=== PATIENT | female | born 1975 | race Caucasian/White ===

== ENCOUNTER 2021-01-25 20:17 | Emergency (ER) | payer MEDICAID ==
[~2021-01-25] VITALS: Ht 154.9 cm; Wt 54.4 kg
[2021-01-25 20:25] VITALS: BP_SYST 118
--- NOTE | 2021-01-25 21:30 | NUR ---
PT TO BED 6 FOR EVALUATION. REPORT TO ESSIE, RN WHO WILL ASUME CARE.
[2021-01-25 21:33] LABS: BASOPHILS % (AUTO) 0.6 % (0.0-2.0); EOSINOPHILS # (AUTO) 0.1 K/uL (0.0-0.4); EOSINOPHILS % (AUTO) 1.3 % (0.0-4.0); HEMATOCRIT 34.3 % (36-48); HEMOGLOBIN 11.9 g/dL (12.0-16.0); LYMPHOCYTES # (AUTO) 2.1 K/uL (1.0-5.5); LYMPHOCYTES % (AUTO) 39.4 % (20.5-51.5); MEAN CORPUSCULAR HEMOGLOBIN 32 pg (27-31); MEAN CORPUSCULAR HGB CONC 35 % (32-36); MEAN CORPUSCULAR VOLUME 93 fL (79.0-98.0); MONOCYTES # (AUTO) 0.3 K/uL (0.0-1.0); MONOCYTES % (AUTO) 5.4 % (1.7-9.3); NEUTROPHILS # (AUTO) 2.8 K/uL (1.8-7.7); NEUTROPHILS % (AUTO) 53.3 % (40.0-70.0); PLATELET COUNT (AUTO) 187 K/uL (130-430); RED BLOOD CELL COUNT(AUTO) 3.71 MIL/uL (4.2-6.2); RED CELL DISTRIBUTION WIDTH 12.4 % (9.0-15.0); WHITE BLOOD COUNT (AUTO) 5.3 K/uL (4.8-10.8)
--- NOTE | 2021-01-25 21:40 | NUR ---
Patient BIB by family from home. C/O vaginal bleeding x 5 days. Patient reported, had irregular period , prolonged and heavy period since August, Last LMP - and then started again - .
[2021-01-25 21:41] LABS: INR 0.9 (0.8-1.2)
--- NOTE | 2021-01-25 21:45 | NUR ---
ER Dr. Rutledge at bedside examining patient.
[2021-01-25 21:46] LABS: ALBUMIN 3.8 g/dL (3.4-4.8); CALCIUM 8.4 mg/dL (8.4-11.0); CREATININE 0.7 mg/dL (0.55-1.30); POTASSIUM 3.4 mmol/L (3.5-5.1); TOTAL BILIRUBIN 0.3 mg/dL (0.0-1.0)
[2021-01-25 22:09] VITALS: BP_SYST 118
--- NOTE | 2021-01-25 22:09 | NUR ---
Patient given written and verbal discharge instructions and verbalizes understanding. ER MD discussed with patient the results and treatment provided. Patient in stable condition. ID arm band removed. No Rx given. Patient educated on pain management and to follow up with PMD. Pain Scale 0/10. Opportunity for questions provided and answered.
[2021-01-25 22:11] LABS: BILIRUBIN,URINE NEGATIVE (NEGATIVE); BLOOD, URINE 3+ (NEGATIVE); CLARITY/URINE CLEAR (CLEAR); GLUCOSE,URINE NEGATIVE (NEGATIVE); KETONES,URINE NEGATIVE (NEGATIVE); LEUKOCYTE ESTERASE ,URINE NEGATIVE (NEGATIVE); NITRITE, URINE NEGATIVE (NEGATIVE); PROTEIN URINE NEGATIVE (NEGATIVE); UROBILINOGEN,URINE 0.2 (0.2-1.0)
[2021-01-25 22:16] LABS: COLOR,URINE STRAW (YELLOW)
[2021-01-25 22:17] LABS: BACTERIA,URINE FEW /HPF (None Seen); RBC,URINE 0-3 /HPF (0-3); WBC,URINE NONE SEEN /HPF (0-3)
[2021-01-25 22:18] LABS: MUCUS,URINE None Seen /LPF (None Seen)
== END 2021-01-25 22:09 | disposition home or self-care (01) ==
LOC: SED 20:17
DX: N93.8 Other specified abnormal uterine and vaginal bleeding (principal)
CPT/HCPCS: 36415; 80053; 81000; 84702; 85025; 85610-TC; 85730-TC; 99283

== ENCOUNTER 2021-02-17 16:06 | Emergency (ER) | payer MEDICAID, SELFPAY ==
[~2021-02-17] VITALS: Ht 154.9 cm; Wt 54.4 kg
[2021-02-17 16:37] VITALS: BP_SYST 122
--- NOTE | 2021-02-17 16:42 | NUR ---
SALVADOR AND ASKED TO WAIT IN THE WAITING ROOM
--- NOTE | 2021-02-17 16:50 | NUR ---
ER at bedside examining patient.
[2021-02-17] MEDS ORDERED: KETOROLAC TROMETHAMINE 60 MG/2 ML VIAL IM ONE (17:00)
[2021-02-17] MEDS ORDERED: cefTRIAXone 1 GM in LIDOCAINE 1%, 20 ML MDV 2.1 ML IM ONE (17:00)
--- NOTE | 2021-02-17 17:00 | NUR ---
MEDICATED W/ TORADOL AND ROCEPHIN PER MD ORDER
--- NOTE | 2021-02-17 19:00 | NUR ---
Patient to ER bed 3 to gown for evaluation. Side rails up.
--- NOTE | 2021-02-17 19:10 | NUR ---
UA COLLECTED AND SENT TO THE LAB
--- NOTE | 2021-02-17 19:20 | NUR ---
CARE ENDORSED TO YOHANA GOOD
--- NOTE | 2021-02-17 19:23 | NUR ---
Assumed total care of patient. Patient AAO x4 c/o lower abdomen pain and inability to urinate on her own. Patient VSS,breathing even and unlabored, no signs of acute distress noted. Will continue to monitor.
--- NOTE | 2021-02-17 20:30 | NUR ---
Patient resting in gurney, VSS, breathing even and unlabored, no signs of acute distress noted. Patient unable to void on her own. aware.
[2021-02-17 21:02] LABS: BILIRUBIN,URINE NEGATIVE (NEGATIVE); BLOOD, URINE 2+ (NEGATIVE); CLARITY/URINE CLEAR (CLEAR); GLUCOSE,URINE NEGATIVE (NEGATIVE); KETONES,URINE NEGATIVE (NEGATIVE); LEUKOCYTE ESTERASE ,URINE NEGATIVE (NEGATIVE); NITRITE, URINE NEGATIVE (NEGATIVE); PH,URINE 6.5 (5.0-8.0); PROTEIN URINE NEGATIVE (NEGATIVE); UROBILINOGEN,URINE 0.2 (0.2-1.0)
[2021-02-17 21:03] LABS: COLOR,URINE STRAW (YELLOW)
--- NOTE | 2021-02-17 21:22 | NUR ---
Patient ambulated to restroom with steady gait. Patient unable to void on her own. aware.
[2021-02-17 21:26] LABS: BACTERIA,URINE RARE /HPF (None Seen); MUCUS,URINE None Seen /LPF (None Seen); WBC,URINE 0-3 /HPF (0-3)
--- NOTE | 2021-02-17 22:20 | NUR ---
# 16 FR Hinkle catheter with use of sterile technique. Immediate return of 1200 cc clear yellow urine noted. Bedside drainage bag placed below level of bladder. Pt tolerated procedure well. Patient unable to toilet self. Patient educated with proper care of hinkle.
[2021-02-17 22:35] VITALS: BP_SYST 103
--- NOTE | 2021-02-17 22:35 | NUR ---
Patient given written and verbal discharge instructions and verbalizes understanding. ER MD discussed with patient the results and treatment provided. Patient discharged with Farr Catheter in place per MD orders. Patient in stable condition. ID arm band removed. no Rx given. Patient educated on pain management and to follow up with PMD. Pain Scale 4/10. Opportunity for questions provided and answered. Medication side effect fact sheet provided.
== END 2021-02-17 22:35 | disposition home or self-care (01) ==
LOC: SED 16:06
DX: R33.9 Retention of urine, unspecified (principal)
CPT/HCPCS: 51702; 81000; 96372; 99284; J0696; J1885; J2001

== ENCOUNTER 2021-06-11 05:55 | Day surgery (SDC) | payer MEDICAID, SELFPAY ==
[~2021-06-11] VITALS: Ht 154.9 cm; Wt 54.4 kg
[2021-06-11 06:54] LABS: HCG,QUAL RESULT NEGATIVE (NEGATIVE)
[2021-06-11 07:48] LABS: CALCIUM 8.8 mg/dL (8.4-11.0); CREATININE 0.56 mg/dL (0.55-1.30); POTASSIUM 3.5 mmol/L (3.5-5.1)
[2021-06-11 08:06] LABS: TOTAL BILIRUBIN 0.3 mg/dL (0.0-1.0)
[2021-06-11] MEDS ORDERED: METOCLOPRAMIDE HCL 10 MG/2 ML VIAL IVP ONE (08:13)
[2021-06-11] MEDS ORDERED: fentaNYL CITRATE/PF 100 MCG/2 ML AMP IVP ONE (08:13)
[2021-06-11] MEDS ORDERED: LR 1,000 ML IV.SOLN IV ONE (08:13)
[2021-06-11] MEDS ORDERED: SUCCINYLCHOLINE CHLORIDE 20 MG/ML(QUELICIN) IVP ONE (08:13)
[2021-06-11] MEDS ORDERED: PROPOFOL 200MG/ 20ML VIAL (DIPRIVAN) IV ONE (08:13)
[2021-06-11] MEDS ORDERED: LIDOCAINE 1% 10 MG/ML, 20 ML MDV INJ ONE (08:13)
[2021-06-11] MEDS ORDERED: ROCURONIUM BROMIDE 10 MG/ML (ZEMURON) IV ONE (08:13)
[2021-06-11] MEDS ORDERED: ONDANSETRON HCL 4 MG/2 ML VIAL IVP ONE (08:13)
[2021-06-11] MEDS ORDERED: NS IRRIG SOLN 1000 ML IR ONE (08:13)
[2021-06-11] MEDS ORDERED: NS 1000 ML IV.SOLN IV ONE (08:13)
[2021-06-11] MEDS ORDERED: KETOROLAC TROMETHAMINE 30 MG VIAL IVP ONE (08:13)
[2021-06-11] MEDS ORDERED: MIDAZOLAM HCL 5 MG/5 ML VIAL IVP ONE (08:13)
[2021-06-11] MEDS ORDERED: CEFAZOLIN 1 GM IVPB PREMIX 50 ML IV ONE (08:13)
[2021-06-11] MEDS ORDERED: BUPIVACAINE /EPINEPHRINE/PF 0.5% 30 ML VIAL INJ ONE (08:13)
[2021-06-11] MEDS ORDERED: SEVOFLURANE 15 MIN GAS INH ONE (08:13)
[2021-06-11] MEDS ORDERED: GLYCOPYRROLATE 0.2 MG/ML VIAL IJ ONE (08:13)
[2021-06-11] MEDS ORDERED: WATER FOR IRRIGATION,STERILE 1,000 ML IRRIG.SOLN IR ONE (08:13)
[2021-06-11] MEDS ORDERED: PHENYLEPHRINE HCL 10 MG/ML VIAL (NEOSYNEPHRINE) IV ONE (08:13)
[2021-06-11] MEDS ORDERED: IBUPROFEN 800 MG TABLET PO PRN (08:30)
[2021-06-11] MEDS ORDERED: OXYCODONE/ACETAMINOPHEN 5-325 TABLET PO PRN ×2 (08:30)
[2021-06-11] MEDS ORDERED: ONDANSETRON HCL 4 MG/2 ML VIAL IVP PRN ×2 (08:30→09:00)
[2021-06-11] MEDS ORDERED: KETOROLAC TROMETHAMINE 30 MG VIAL IVP PRN ×2 (08:30→09:00)
[2021-06-11] MEDS ORDERED: HYDROmorphone 1 MG/ML INJ. CARTRIDGE IVP PRN (09:00)
[2021-06-11] MEDS ORDERED: HYDROmorphone 2 MG/ML VIAL IVP PRN (09:00)
[2021-06-11] MEDS ORDERED: LR 1,000 ML IV SCH (09:00)
[2021-06-11] MEDS ORDERED: HYDROmorphone 1 MG/ML INJ. CARTRIDGE ONE (10:49)
[2021-06-11] MEDS ORDERED: SIMETHICONE 80 MG TAB.CHEW PO ONE (12:15)
[2021-06-11 13:36] VITALS: BP_SYST 92
== END 2021-06-11 14:20 | disposition home or self-care (01) ==
LOC: SMU 05:55 → SDS 05:55
PROVIDERS: ATTEND Obstetrics & Gynecology
DX: N83.201 Unspecified ovarian cyst, right side (principal); Z20.822 Contact with and (suspected) exposure to COVID-19; Z79.899 Other long term (current) drug therapy
CPT/HCPCS: 36415; 58661; 80053; 84703; 86886; 86900; 86901; 88305; C1727; J0330; J0690; J1170; J1885; J2001; J2250; J2370; J2405; J2704; J2765; J3010; J3490 ×2; J7030; J7120; U0003

== ENCOUNTER 2021-10-21 10:26 | Inpatient (IN) | payer MEDICAID ==
[~2021-10-21] VITALS: Ht 154.9 cm; Wt 51.7 kg
[2021-10-21 10:53] LABS: HCG,QUAL RESULT NEGATIVE (NEGATIVE)
[2021-10-21] MEDS ORDERED: OXYCODONE/ACETAMINOPHEN 5-325 TABLET PO PRN (13:00)
[2021-10-21] MEDS ORDERED: ONDANSETRON HCL 4 MG/2 ML VIAL IVP PRN ×2 (13:00→13:15)
[2021-10-21] MEDS ORDERED: LR 1,000 ML IV SCH (13:00)
[2021-10-21] MEDS ORDERED: HYDROmorphone 2 MG/ML VIAL IVP PRN (13:00)
[2021-10-21] MEDS ORDERED: IBUPROFEN 800 MG TABLET PO PRN (13:00)
[2021-10-21] MEDS ORDERED: HYDROmorphone 1 MG/ML INJ. CARTRIDGE IVP PRN (13:15)
[2021-10-21] MEDS ORDERED: KETOROLAC TROMETHAMINE 30 MG VIAL IVP PRN (13:15)
[2021-10-21 13:55] VITALS: BP_SYST 117
[2021-10-21] MEDS ORDERED: ONDANSETRON HCL 4 MG/2 ML VIAL ONE (14:05)
[2021-10-21] MEDS ORDERED: SEVOFLURANE 15 MIN GAS INH ONE (14:05)
[2021-10-21] MEDS ORDERED: PROPOFOL 200MG/ 20ML VIAL (DIPRIVAN) IV ONE (14:05)
[2021-10-21] MEDS ORDERED: PHENYLEPHRINE HCL 10 MG/ML VIAL (NEOSYNEPHRINE) ONE (14:05)
[2021-10-21] MEDS ORDERED: SUCCINYLCHOLINE CHLORIDE 20 MG/ML(QUELICIN) ONE (14:05)
[2021-10-21] MEDS ORDERED: LR 1,000 ML IV.SOLN IV ONE (14:05)
[2021-10-21] MEDS ORDERED: NS IRRIG SOLN 1000 ML IR ONE (14:05)
[2021-10-21] MEDS ORDERED: ROCURONIUM BROMIDE 10 MG/ML (ZEMURON) ONE (14:05)
[2021-10-21] MEDS ORDERED: GLYCOPYRROLATE 0.2 MG/ML VIAL ONE (14:05)
[2021-10-21] MEDS ORDERED: CEFAZOLIN 2 GM IVPB PREMIX 50 ML IV ONE (14:05)
[2021-10-21] MEDS ORDERED: NS 1000 ML IV.SOLN IV ONE (14:05)
[2021-10-21] MEDS: HYDROmorphone 2 MG/ML VIAL ONE ×2 (14:20→14:30)
[2021-10-21] MEDS: KETOROLAC TROMETHAMINE 30 MG VIAL IVP PRN ×2 (17:39→22:32)
[2021-10-21] MEDS: DOCUSATE SODIUM 100 MG CAPSULE PO SCH (20:55)
[2021-10-21] MEDS ORDERED: TEMAZEPAM 15 MG CAPSULE PO PRN (21:00)
[2021-10-22] MEDS: KETOROLAC TROMETHAMINE 30 MG VIAL IVP PRN (04:02)
[2021-10-22] MEDS: SIMETHICONE 80 MG TAB.CHEW PO PRN ×2 (04:28→12:16)
[2021-10-22] MEDS: OXYCODONE/ACETAMINOPHEN 5-325 TABLET PO PRN ×2 (05:14→09:16)
[2021-10-22 07:00] LABS: BASOPHILS % (AUTO) 0.3 % (0.0-2.0); EOSINOPHILS % (AUTO) 0.1 % (0.0-4.0); HEMOGLOBIN 10.5 g/dL (12.0-16.0); LYMPHOCYTES # (AUTO) 1.1 K/uL (1.0-5.5); LYMPHOCYTES % (AUTO) 14.4 % (20.5-51.5); MEAN CORPUSCULAR HEMOGLOBIN 31 pg (27-31); MEAN CORPUSCULAR HGB CONC 34 % (32-36); MEAN CORPUSCULAR VOLUME 90 fL (79.0-98.0); MONOCYTES # (AUTO) 0.7 K/uL (0.0-1.0); MONOCYTES % (AUTO) 8.5 % (1.7-9.3); NEUTROPHILS # (AUTO) 5.9 K/uL (1.8-7.7); NEUTROPHILS % (AUTO) 76.7 % (40.0-70.0); PLATELET COUNT (AUTO) 156 K/uL (130-430); RED BLOOD CELL COUNT(AUTO) 3.43 MIL/uL (4.2-6.2); RED CELL DISTRIBUTION WIDTH 12.9 % (9.0-15.0); WHITE BLOOD COUNT (AUTO) 7.7 K/uL (4.8-10.8)
[2021-10-22] MEDS: DOCUSATE SODIUM 100 MG CAPSULE PO SCH (09:17)
== END 2021-10-22 17:15 | disposition home or self-care (01) | DRG 513 ==
LOC: SDS 10:26 → SMU 10:28 → SPU 15:44 → SDS 15:46 → SPU 15:50
PROVIDERS: ADMIT Obstetrics & Gynecology; ATTEND Obstetrics & Gynecology
PROC: 0UT90ZL Resection of Uterus, Supracervical, Open Approach (ICD-10-PCS; principal; 2021-10-21 12:30)
DX: N80.9 Endometriosis, unspecified (principal); D25.9 Leiomyoma of uterus, unspecified; N92.0 Excessive and frequent menstruation with regular cycle; Z20.822 Contact with and (suspected) exposure to COVID-19
CPT/HCPCS: 36415; 71046-TC; 84703; 85025; 86886; 86900; 86901; 87635-QW; 88307; J0330; J0690; J1170; J1885; J2370; J2405; J2704; J3490; J7030; J7120; U0003